=== PATIENT | female | born 1965 | race Caucasian/White ===

== ENCOUNTER 2024-05-11 08:51 | Outpatient (CLI) | payer OTHER ==
[2024-05-11 10:07] LABS: ALT (SGPT) 30 U/L (8-55); AST (SGOT) 20 U/L (5-34); Alkaline Phosphatase 145 U/L (40-110); Anion Gap 18 mmol/L (10-20); BUN (Urea Nitrogen) 18 mg/dL (9.8-20.1); Bilirubin, Total 0.5 mg/dL (0.2-1.2); Calc. Creatinine Clearance 0 mL/min (70-130); Calcium 9.8 mg/dL (7.8-10.44); Carbon Dioxide 23 mmol/L (22-29); Chloride 97 mmol/L (98-107); Estimated GFR 62; Glucose 119 mg/dL (70-105); Potassium 5.1 mmol/L (3.5-5.1); Sodium 133 mmol/L (136-145)
[2024-05-11] MEDS ORDERED: Iopamidol 370 76% 100 ML VIAL ONE (11:09)
== END 2024-05-11 08:52 | disposition home or self-care (01) ==
LOC: BURCT 08:51
PROVIDERS: ATTEND Internal Medicine
DX: Z08 Encounter for follow-up examination after completed treatment for malignant neoplasm (principal); Z15.01 Genetic susceptibility to malignant neoplasm of breast; Z85.3 Personal history of malignant neoplasm of breast; N28.89 Other specified disorders of kidney and ureter; M89.9 Disorder of bone, unspecified; R91.1 Solitary pulmonary nodule; M48.9 Spondylopathy, unspecified
CPT/HCPCS: 36415; 71260; 74177; 80053; Q9967